=== PATIENT | female | born 1970 | race American Indian/Alaskan Native ===

== ENCOUNTER 2017-02-27 11:00 | Outpatient (CLI) | payer MEDICAID | END 2017-02-27 11:01 | disposition home or self-care (01) | LOC: SLR 11:00 | PROVIDERS: ATTEND Otolaryngology | DX: G47.30 Sleep apnea, unspecified (principal) | CPT/HCPCS: 95810 ==

== ENCOUNTER 2017-04-10 11:00 | Outpatient (CLI) | payer MEDICAID | END 2017-04-10 11:01 | disposition home or self-care (01) | LOC: SLR 11:00 | PROVIDERS: ATTEND Otolaryngology | DX: G47.33 Obstructive sleep apnea (adult) (pediatric) (principal); E66.9 Obesity, unspecified; R40.0 Somnolence; I10 Essential (primary) hypertension | CPT/HCPCS: 95811 ==

== ENCOUNTER 2017-11-05 09:27 | Outpatient (CLI) | payer MEDICARE ==
--- NOTE | 2017-11-05 11:44 | Fluoroscopy Report ---
UPPER GI AIR CONTRAST: History: Probable GI reflux. FINDINGS: The patient ingested barium without difficulty. The esophageal contour is normal. There are no ulcerations or filling defects seen in the esophagus. There is normal esophageal motility. No hiatal hernia or reflux was witnessed during this exam. The gastric contour and position appear normal. There are no ulcerations or filling defects in the stomach. Gastric motility appeared decreased throughout this exam suggesting gastroparesis. The duodenal bulb and duodenal sweep appear normal. IMPRESSION: Findings suggestive of gastroparesis. No reflux was witnessed during this exam.
== END 2017-11-05 09:28 | disposition home or self-care (01) ==
LOC: FLUORO 09:27
PROVIDERS: ATTEND Internal Medicine
DX: K21.9 Gastro-esophageal reflux disease without esophagitis (principal)
CPT/HCPCS: 36415; 36600; 74247; 82785; 82803; 84436; 84443

== ENCOUNTER 2018-02-07 06:32 | Day surgery (SDC) | payer MEDICARE ==
[2018-02-07] MEDS ORDERED: ECOTRIN PO ONE (07:01)
[2018-02-07 07:36] LABS: Basophils % (Auto) 0.2 % (0.0-1.8); Eosinophils # (Auto) 0.3 K/mm3 (0.0-0.4); Eosinophils % (Auto) 2.9 % (0.0-4.3); Hematocrit 34.6 % (30.3-42.9); Hemoglobin 10.9 gm/dl (10.1-14.3); Lymphocytes # (Auto) 2.4 K/mm3 (1.2-5.4); Lymphocytes % (Auto) 27.6 % (13.4-35.0); Mean Corpuscular HGB Conc 31 % (30-34); Monocytes # (Auto) 0.6 K/mm3 (0.0-0.8); Monocytes % (Auto) 6.3 % (0.0-7.3); Platelet Count 374 K/mm3 (140-440); Red Blood Count 5.06 M/mm3 (3.65-5.03); Red Cell Distribution Width 18.7 % (13.2-15.2)
[2018-02-07 07:42] LABS: INR 0.97 (0.87-1.13)
[2018-02-07 07:44] LABS: Mean Corpuscular Hemoglobin 21 pg (28-32); Mean Corpuscular Volume 68 fl (79-97)
[2018-02-07 07:57] LABS: BUN/Creatinine Ratio 18; Blood Urea Nitrogen 9 mg/dL (7-17); Calcium 8.8 mg/dL (8.4-10.2); Hemolysis Index 3
[2018-02-07] MEDS ORDERED: NACL 0.9% 500 ML 500 ML IV SCH (08:00)
[2018-02-07] MEDS ORDERED: HEPARIN/NS 5000 UNIT/500ML(CATH LAB) 1,000 ML IR ONE (08:20)
[2018-02-07] MEDS ORDERED: XYLOCAINE 2% INFILTRATI ONE (08:21)
[2018-02-07] MEDS ORDERED: SUBLIMAZE ONE (08:22)
[2018-02-07] MEDS ORDERED: VERSED ONE (08:22)
[2018-02-07] MEDS ORDERED: NITROGLYCERIN SYRINGE 3 ML ONE (08:34)
[2018-02-07] MEDS ORDERED: CALAN ONE (08:34)
[2018-02-07] MEDS ORDERED: HEPARIN 10,000 UNITS/10 ML ONE (08:35)
[2018-02-07] MEDS: VERSED ONE ×2 (09:13→09:19)
--- NOTE | 2018-02-07 10:20 | Short Stay Summary ---
Short Stay Documentation Date of service: 02/07/18 - History H&P: obtained from office - Allergies and Medications Current Medications: Allergies No Known Allergies Allergy (Unverified 11/05/17 09:27) Home Medications Medication Instructions Recorded Confirmed Last Taken Type ALBUTEROL NEB's [Proventil] 2.5 mg IH TID PRN 02/07/18 02/07/18 02/06/18 History 2.5 Azelastine HCl 137 mcg NS DAILY PRN 02/07/18 02/07/18 02/06/18 History 1 spray Carvedilol [Coreg] 6.25 mg PO BID 02/07/18 02/07/18 02/06/18 History Diclofenac Potassium 50 mg PO 3XW 02/07/18 02/07/18 02/06/18 History FLUoxetine HCL [Fluoxetine HCl] 40 mg PO DAILY 02/07/18 02/07/18 02/06/18 History Losartan Potassium [Cozaar] 50 mg PO DAILY 02/07/18 02/07/18 02/06/18 History 50 mg Mirtazapine [Remeron] 30 mg PO DAILY 02/07/18 02/07/18 02/06/18 History 30 mg hydrOXYZINE PAMOATE [Hydroxyzine 25 mg PO DAILY PRN 02/07/18 02/07/18 02/06/18 History Pamoate] 25 mg risperiDONE [RisperiDONE] 1 mg PO QDAY 02/07/18 02/07/18 02/06/18 History Active Medications Sodium Chloride (Nacl 0.9% 500 Ml) 500 mls @ 50 mls/hr IV DIRECT TOM Stop: 02/07/18 17:59 Last Admin: 02/07/18 07:15 Dose: 50 mls/hr - Physical exam General appearance: no acute distress Integumentary: no rash HEENT: Atraumatic Lungs: Clear to auscultation Breasts: deferred Heart: Regular rate Gastrointestinal: normal Female Genitourinary: deferred Rectal Exam: deferred Extremities: no ischemia Neurological: Normal gait - Brief post op/procedure progress note Date of procedure: 02/07/18 Pre-op diagnosis: Shortness of breath Post-op diagnosis: same Procedure: LHc, RHC and LV gram Anesthesia: MAC Findings: See report Surgeon: DION MICHAELS Estimated blood loss: none Pathology: none Condition: stable - Hospital course Hospital course: Uneventful - Disposition Condition at discharge: Good Disposition: DC-01 TO HOME OR SELFCARE Short Stay Discharge Plan Activity: advance as tolerated Weight Bearing Status: Partial Weight Bearing Diet: low fat, low salt Follow up with: KOBE BRADFORD MD [Primary Care Provider] - 7 Days
--- NOTE | 2018-02-07 10:53 | Cardiac Catherization Report ---
LEFT AND RIGHT HEART CATHETERIZATION ORDERING PHYSICIAN: Dieter Morton MD INDICATION: Persistent shortness of breath. PROCEDURES PERFORMED: 1. Selective left and right coronary angiography. 2. Left ventriculography. 3. Right heart catheterization with hemodynamic measurement and oxygen saturation run. DESCRIPTION OF PROCEDURE: After obtaining the consent, the patient was draped using sterile technique. A 2% lidocaine was injected into the right wrist and 2% lidocaine was injected into the right antecubital fossa. A 5-[place] vascular sheath was inserted into the right brachial vein over a previously inserted peripheral intravenous line. A 5-[place] vascular sheath was inserted into the right radial artery. An intra-arterial cocktail of verapamil, nitroglycerin, and heparin was injected. A 5-[place] Prescott-Donnell catheter was used to measure right-sided hemodynamics and perform oxygen saturation run. A 5-[place] JL3.5 catheter was used to selectively engage the left coronary artery. A 5-[place] 3DRC catheter was used to selectively engage the right coronary artery. A 5-[place] JR4 catheter was used to perform a left ventriculogram. No complications occurred during the procedure. Hemostasis was achieved at the end of the procedure using manual pressure. SPECIMEN REMOVED: None. SEDATION ADMINISTERED: 1.5 mg of IV Versed and 50 mcg of IV fentanyl. Physician/patient [id number] sedation start time was 8:52 a.m. Physician/patient [id number] sedation stop time was 9:38 a.m. Total sedation time was 46 minutes. FINDINGS: HEMODYNAMICS: 1. The mean pulmonary capillary wedge pressure 14 mmHg. 2. Mean pulmonary artery pressure 26 mmHg. 3. Pulmonary artery systolic pressure 39 mmHg and the pulmonary artery diastolic pressure of 12 mmHg. 4. The right ventricular systolic pressure was 39 mmHg and the right ventricular end-diastolic pressure was 13 mmHg. 5. The mean right arterial pressure is 13 mmHg. 6. The aortic pressure was 155/94, the left ventricular systolic pressure was 150 mmHg and the left ventricular end-diastolic pressure was measured at 20 mmHg. 7. The Andrey cardiac output was 7.34 L per minute with a cardiac index of 3.32 L per minute per m2. 8. Pulmonary artery saturation 70%, right ventricular saturation 71%, right atrial saturation 71%, superior vena cava saturation 75%, and aortic saturation 98%. CARDIAC STRUCTURES: The left ventricle is normal in size and systolic function. The left ventricular ejection fraction is measured at 60%. CORONARY ANATOMY: 1. This is a right dominant circulation. 2. The left main is angiographically normal. 3. The LAD has evidence of a 30% tubular stenosis in the proximal segment. There is also a 40% tubular stenosis in the mid to distal segment. No obstructive disease is noted throughout the LAD. 4. The left circumflex artery has mild diffuse nonobstructive luminal irregularities. 5. The right coronary artery is a dominant vessel with 10% nonobstructive luminal irregularities. IMPRESSION: 1. Mild nonobstructive coronary artery disease noted in the LAD. 2. Borderline pulmonary artery pressure with a transpulmonary gradient of 12 mmHg and a pulmonary vascular resistance of less than 2 Wood units. 3. No evidence of intracardiac shunt. 4. Normal cardiac output. 5. Normal LV function with an ejection fraction estimated at 60%. RECOMMENDATIONS: Medical therapy and may proceed with gastric bypass surgery. JOB# [id number] MAURI/BLAYNE
[2018-02-07 12:51] VITALS: BP 146/77
== END 2018-02-07 12:50 | disposition home or self-care (01) ==
LOC: CATHLABREC 06:32
PROVIDERS: ATTEND Internal Medicine
DX: I25.10 Atherosclerotic heart disease of native coronary artery without angina pectoris (principal); I10 Essential (primary) hypertension; J45.909 Unspecified asthma, uncomplicated; F41.9 Anxiety disorder, unspecified; F32.9 Major depressive disorder, single episode, unspecified; G47.30 Sleep apnea, unspecified; K21.9 Gastro-esophageal reflux disease without esophagitis; M19.90 Unspecified osteoarthritis, unspecified site; G47.00 Insomnia, unspecified; Z79.899 Other long term (current) drug therapy; Z98.891 History of uterine scar from previous surgery; Z98.890 Other specified postprocedural states
CPT/HCPCS: 36415; 80048; 85025; 85610; 85730; 93005; 93010; 93460; 99156; 99157; C1894; J1644; J2250; J3010; J7040; Q9967

== ENCOUNTER 2018-02-25 11:00 | Outpatient (CLI) | payer MEDICARE | END 2018-02-25 11:01 | disposition home or self-care (01) | LOC: SLR 11:00 | PROVIDERS: ATTEND Otolaryngology | DX: G47.33 Obstructive sleep apnea (adult) (pediatric) (principal); R40.0 Somnolence; R06.83 Snoring; I10 Essential (primary) hypertension; J45.909 Unspecified asthma, uncomplicated; K21.9 Gastro-esophageal reflux disease without esophagitis; M19.90 Unspecified osteoarthritis, unspecified site | CPT/HCPCS: 95810 ==

== ENCOUNTER → 2018-03-19 | Outpatient (CLI) | payer MEDICARE | END | disposition home or self-care (01) | LOC: SLR 11:00 | PROVIDERS: ATTEND Otolaryngology | DX: G47.33 Obstructive sleep apnea (adult) (pediatric) (principal); I10 Essential (primary) hypertension; J45.909 Unspecified asthma, uncomplicated; K21.9 Gastro-esophageal reflux disease without esophagitis; M19.90 Unspecified osteoarthritis, unspecified site | CPT/HCPCS: 95811 ==

== ENCOUNTER → 2021-11-23 | Outpatient (CLI) | payer MEDICARE | END | disposition home or self-care (01) | LOC: SLR 11:00 | PROVIDERS: ATTEND Internal Medicine | DX: G47.33 Obstructive sleep apnea (adult) (pediatric) (principal) | CPT/HCPCS: 95811 ==